=== PATIENT | female | born 1990 | race Caucasian/White ===

== ENCOUNTER 2018-08-23 02:08 | Emergency (ER) | payer BC ==
[2018-08-23] MEDS ORDERED: NS 0.9% 1000 ML* 1,000 ML IV ONE (02:21)
[2018-08-23] MEDS ORDERED: Morphine VIAL* 4 MG/ML VIAL (1 ml vial) IV ONE ×2 (02:23→03:25)
--- NOTE | 2018-08-23 02:40 | ED ---
Abdominal Pain/Female - HPI Summary HPI Summary: This patient is a 27 year old F presenting to [facility] accompanied by a woman with a chief complaint of sharp, left-sided abd pain radiating to the flank since 21: 00. The patient rates the pain 10/10 in severity. Patient reports nausea. Patient denies urinary symptoms. The patient was lying on the couch when she noticed the pain, which she thought was due to gas. She took GasX before trying to go to sleep. This is her first . The only complication with the so far is that the fetus has one umbilical artery. She went to the doctor on 08/21. No PMHx abdominal surgeries. - History of Current Complaint Chief Complaint: EDAbdPain Stated Complaint: 20WKS PREG ABD PAIN Time Seen by Provider: 08/23/18 02:16 Hx Obtained From: Patient Onset/Duration: Sudden Onset, Lasting Hours - 21:00 Timing: Constant Severity Initially: Severe Severity Currently: Severe Pain Intensity: 10 Pain Scale Used: 0-10 Numeric Location: Discrete At: LLQ Radiates to: Flank Character: Sharp Associated Signs and Symptoms: Positive: Nausea. Negative: Urinary Symptoms Allergies/Adverse Reactions: Allergies Allergy/AdvReac Type Severity Reaction Status Date / Time acetaminophen [From Vicodin] Allergy Nausea Verified 08/23/18 02:12 hydrocodone [From Vicodin] Allergy Nausea Verified 08/23/18 02:12 PMH/Surg Hx/FS Hx/Imm Hx History: Denies: Hx Dialysis EENT History: Denies: Hx Auditory Problems Infectious Disease History: No Infectious Disease History: Denies: Traveled Outside the [place] in Last 30 Days - Family History Known Family History: Positive: Non-Contributory - Social History Alcohol Use: None Substance Use Type: Reports: None Smoking Status (MU): Never Smoked Tobacco Review of Systems Positive: Abdominal Pain, Nausea Negative: burning, dysuria, hematuria All Other Systems Reviewed And Are Negative: Yes Physical Exam - Summary Physical Exam Summary: Appearance: Well-appearing, Well-nourished, lying in bed comfortably Skin: Warm, dry, no obvious rash Eyes: sclera anicteric, no conjunctival pallor ENT: mucous membranes moist, pharynx appears normal Neck: Supple, nontender Respiratory: Clear to auscultation, no signs of respiratory distress Cardiovascular: Normal S1, S2. No murmurs. Normal distal pulses in tibial and radial bilaterally. Abdomen: Soft, nontender, normal active bowel sounds present. Abd is gravid, consistent with dates. Musculoskeletal: Normal, Strength/ROM Intact Neurological: A&Ox3, awake and alert, mentation is normal, speech is fluent and appropriate Psychiatric: affect is normal, does not appear anxious or depressed Triage Information Reviewed: Yes Vital Signs On Initial Exam: Initial Vitals Temp Pulse Resp BP Pulse Ox 98.1 F 124 20 116/75 98 08/23/18 02:09 08/23/18 02:09 08/23/18 02:09 08/23/18 02:09 08/23/18 02:09 Vital Signs Reviewed: Yes Diagnostics - Vital Signs Vital Signs Temp Pulse Resp BP Pulse Ox 08/23/18 02:09 98.1 F 124 20 116/75 98 - Laboratory Result Diagrams: 08/23/18 02:36 08/23/18 02:34 Lab Statement: Any lab studies that have been ordered have been reviewed, and results considered in the medical decision making process. Abdominal Pain Fem Course/Dx - Course Course Of Treatment: This patient is a 27 year old F presenting to [facility] accompanied by a woman with a chief complaint of sharp, left-sided abd pain radiating to the flank since 21:00. The patient rates the pain 10/10 in severity. Patient reports nausea. Patient denies urinary symptoms. Test results with no significant abnormalities. In the ED course the patient was given Morphine, IV fluids, Oxycodone, and Ceftriaxone. We discussed patient care with Dr. Alonso and they recommended that I treat the pain, get an US, and get a urologist involved. We then discussed care with Dr. Alfredo and they approved the US. The patient will be signed out by Dr. Vera to Dr. Ibrahim, awaiting the results of the US and disposition. - Diagnoses Provider Diagnoses: Kidney stones - Provider Notifications Discussed Care Of Patient With: Hieu Alonso Time Discussed With Above Provider: 03:30 - treat pain, get US, consult urologist Discharge - Sign-Out/Discharge Documenting (check all that apply): Sign-Out Patient Signing out patient TO: Tam Ibrahim - Discharge Plan Condition: Stable Disposition: HOME Prescriptions: ceFUROXime TAB(*) [Ceftin TAB 250 MG(*)] 500 mg PO BID #20 tab Patient Education Materials: Kidney Stones (ED) Referrals: Donnie Garnica MD [Medical Doctor] - 3 Days Additional Instructions: Please take medication as prescribed. Follow up with your primary care provider in 2-3 days. Follow up with OCEANOGRAPHY PROFESSOR and urology when you return home. Return to the emergency department for any new or worsening symptoms. - Billing Disposition and Condition Condition: STABLE Disposition: Home - Attestation Statements Document Initiated by Scribe: Yes Documenting Scribe: Richard Mcmahan Provider For Whom Trippibe is Documenting (Include Credential): Tam Vera MD Scribe Attestation: Richard Luna, scribed for Tam Vera MD on 08/23/18 at 1841. Scribe Documentation Reviewed: Yes Provider Attestation: The documentation as recorded by the Richard olsen accurately reflects the service I personally performed and the decisions made by me, Tam eVra MD Status of Scribe Document: Viewed Consult Consult: At 05:50, talked to Dr. Alfredo about the patient and they agreed that there should be an ultrasound. They request that we call back once the results are in.
[2018-08-23 02:45] LABS: ABS Basophils 0 10^3/ul (0-0.2); ABS Eosinophils 0.1 10^3/ul (0-0.6); ABS Monocytes 0.6 10^3/ul (0-0.8); ABS Neutrophils 6.6 10^3/ul (1.5-7.7); ABS Nucleated RBC 0 10^3/ul; Eosinophil % 1.6 %; Hematocrit 32 % (35-47); Lymphocyte % 21.1 %; Mean Corpuscular HGB Conc 35 g/dl (31-36); Mean Corpuscular Hemoglobin 30 pg (27-31); Mean Corpuscular Volume 86 fL (80-97); Mean Platelet Volume 7.6 fL (7.4-10.4); Nucleated Red Blood Cells % 0; Platelet Count 326 10^3/ul (150-450); Red Blood Count 3.69 10^6/ul (4.00-5.40); Red Cell Distribution Width 14 % (10.5-15); White Blood Count 9.3 10^3/ul (3.5-10.8)
[2018-08-23 03:00] LABS: Albumin 3.7 g/dL (3.2-5.2); Albumin/Globulin Ratio 1.3 (1-3); BUN/Creatinine Ratio 15.9 (8-20); Calcium 10.3 mg/dL (8.6-10.3); EGFR Non-African American 101.3 (>60); Globulin 2.8 g/dL (2-4); Potassium 3.6 mmol/L (3.5-5.0); Total Bilirubin 0.2 mg/dL (0.2-1.0); Total Protein 6.5 g/dL (6.4-8.9)
[2018-08-23 03:09] LABS: Urine Appearance Cloudy; Urine Bacteria 1+ (Absent); Urine Bilirubin Negative (Negative); Urine Blood 3+ (Negative); Urine Color Yellow; Urine Glucose Negative (Negative); Urine Ketones Negative (Negative); Urine Nitrite Negative (Negative); Urine Protein Negative (Negative); Urine Red Blood Cell 3+(>10/hpf) (Absent); Urine Specific Gravity 1.009 (1.010-1.030); Urine Urobilinogen Negative (Negative); Urine White Blood Cell 3+(>20/hpf) (Absent)
[2018-08-23] MEDS ORDERED: cefTRIAXone(*) 1 GM in NS 0.9% 50 ML* 50 ML IVPB ONE (03:27)
[2018-08-23] MEDS ORDERED: oxyCODONE TAB* 5 MG TAB PO ONE (03:44)
[2018-08-23] MEDS ORDERED: Morphine ORAL.SOLN 10 mg* 2 MG/ML UDC 5 ml PO PRN (03:44)
--- NOTE | 2018-08-23 08:13 | ED ---
Progress - Progress Note Progress Note: The patient is a sign-out from Dr. Tam Vera MD, to Dr. Tam Ibrahim MD , at change of shift at 0700 pending renal US and disposition. Renal US reveals the absence of a left ureteral jet suspicious for a left ureteral obstruction. I consulted with Dr. Alfredo, urology, at 0915, who said he would come to the ED to speak with the patient. Dr. Alfredo said that the patient should receive more IV fluids and get a repeat renal US to see if the jet is present [0945]. We will reconsult following US. Bladder US reveals the presence of bilateral ureteral jets. She is diagnosed with kidney stones and will be sent home with instructions, as well as a prescription for Ceftin. She will follow up with OB/ GROUP EXERCISE MANAGER and urology is [place] when she returns home. She agrees with this plan and understands the need for return to the ED if symptoms worsen or new ones appear. - Results/Orders Results/Orders: Renal US: No left ureteral jet suspicious for a left ureteral obstruction. Recommend CT Imaging without contrast for further definition. ED physician has reviewed this report. Bladder US: 1. Bilateral ureteral jets are identified on the current examination. 2. 10 ml postvoid residual. ED physician has reviewed this report. Re-Evaluation - Re-Evaluation First Eval Re-Evaluation Time: 12:40 Change: Improved Comment: I spoke with the patient concerning US results and discharge home. She will follow up with OBJECT ORIENTED DEVELOPER and urology when she returns home to [place]. Course/Dx - Course Course Of Treatment: This patient is a 27 year old F presenting to [facility] accompanied by a woman with a chief complaint of sharp, left-sided abd pain radiating to the flank since 21:00. The patient rates the pain 10/10 in severity. Patient reports nausea. Patient denies urinary symptoms. Test results with no significant abnormalities. In the ED course the patient was given Morphine, IV fluids, Oxycodone, and Ceftriaxone. We discussed patient care with Dr. Alonso and they recommended that I treat the pain, get an US, and get a urologist involved. We then discussed care with Dr. Alfredo and they approved the US. The patient will be signed out by Dr. Vera to Dr. Ibrahim, awaiting the results of the US and disposition. - Diagnoses Provider Diagnoses: Kidney stones - Provider Notifications Discussed Care Of Patient With: Sam Alfredo - urology Time Discussed With Above Provider: 09:15 Instructed by Provider To: Other - I spoke with Dr. Alfredo who said he would come to the ED to speak with the patient. Dr. Alfredo said that the patient should receive more IV fluids and get a repeat renal US to see if the jet is present [0945]. We will reconsult following US. Discharge - Sign-Out/Discharge Documenting (check all that apply): Patient Departure - Patient will be discharged home. - Discharge Plan Condition: Stable Disposition: HOME Prescriptions: ceFUROXime TAB(*) [Ceftin TAB 250 MG(*)] 500 mg PO BID #20 tab Patient Education Materials: Kidney Stones (ED) Referrals: Donnie Garnica MD [Medical Doctor] - 3 Days Additional Instructions: Please take medication as prescribed. Follow up with your primary care provider in 2-3 days. Follow up with OBJECT ORIENTED DEVELOPER and urology when you return home. Return to the emergency department for any new or worsening symptoms. - Billing Disposition and Condition Condition: STABLE Disposition: Home - Attestation Statements Document Initiated by Diane: Yes Documenting Scribe: Vicki Temple Provider For Whom Diane is Documenting (Include Credential): Dr. Tam Ibrahim MD Scribe Attestation: Vicki Luna scribed for Dr. Tam Ibrahim MD on 08/23/18 at 1659. Scribe Documentation Reviewed: Yes Provider Attestation: The documentation as recorded by the Vicki olsen accurately reflects the service I personally performed and the decisions made by me, Dr. Tam Ibrahim MD Status of Scribporfirio Document: Viewed
[2018-08-23] MEDS: NS 0.9% 1000 ML* 2,000 ML IV ONE (10:04)
--- NOTE | 2018-08-23 11:26 | CONS ---
UROLOGY CONSULTATION NOTE: DATE OF CONSULT: 08/23/18. REQUESTING PHYSICIAN: Dr. Vera in the emergency department. DIAGNOSES: 1. Left flank pain. 2. consultation. HISTORY OF PRESENT ILLNESS: Polly Read is a 27-year-old lady who is 20 weeks who presented to the emergency room in earlier hours of the morning with left flank pain. She states that the pain started at about 9 p.m. on 08/22/18 and is intermittent in nature. There is no prior history of flank pain or of any episodes of urolithiasis. There is no history of recurrent urinary tract infections. She denies any dysuria or gross hematuria or fever. PAST MEDICAL HISTORY: Essentially unremarkable. She is 20 weeks with no problems during so far. ALLERGIES AND INTOLERANCES: ACETAMINOPHEN and HYDROCODONE. REVIEW OF SYSTEMS: She is otherwise in excellent health. There is no history of diabetes mellitus or any other major systemic illness. PHYSICAL EXAMINATION: Reveals a pleasant young lady who is currently resting comfortably. She states that for the last 4 to 5 hours prior to my evaluation she has not required any pain medication, and she rates the pain currently at a level of 2 or 3 out of 10. She denies any nausea or vomiting. Vital Signs: Temperature is 97.9, blood pressure 110/61, heart rate 91 per minute regular, oxygen saturation 97% on room air. Cardiovascular Exam: Regular rate and rhythm. S1, S2. Lungs are clear bilaterally. Abdomen is soft with very mild left flank tenderness. LABORATORY DATA: Review of labs reveals a white count of 9.3, hemoglobin and hematocrit are 11 and 32, with a platelet count of 326. Review of chemistries reveals a sodium of 135, potassium of 3.6, BUN and creatinine are normal at 11 and 0.69 respectively. Glucose is 106. Urinalysis reveals pH of 7.0 with 3+ blood, 3+ wbc's, 1+ bacteria, although nitrite is negative. I reviewed the renal sonogram which does not show any evidence of left hydronephrosis. There is no left renal calculus noted and no evidence of any extravasation around the left kidney on sonogram. The bladder sonogram, there is an absent left ureteral jet (although I do not know what the duration of imaging was for the bladder ultrasound). ASSESSMENT AND PLAN: I had a detail discussion with the patient and her mother. In the absence of any left hydronephrosis and given the fact that the pain is fairly low grade at the present time, this is unlikely to be a significant ureteral obstruction. My recommendation is to give her intravenous fluids and to repeat the bladder ultrasound looking for a left ureteral jet in a couple of hours. If the left ureteral jet is noted and her pain continues to be at relatively low grade, then she could be discharged home on oral antibiotics (I requested the ED to send a urine culture). I did emphasize with the patient and her mother regarding the need for close followup and I recommended that she have a followup ultrasound and urinalysis checked in the next 24 to 48 hours. If the repeat ultrasound continues to show an absent left ureteral jet or if her pain worsens then my recommendation would be to consider admission, intravenous fluids, monitor her, and observe her clinically for signs of any ureteral obstruction. At the present time I do not see any indication for any operative intervention. [id number]/CPS #: [id number] RHEA
[2018-08-23 13:18] VITALS: BP 109/76
== END 2018-08-23 13:21 | disposition home or self-care (01) ==
LOC: ED 02:08
DX: O26.892 Other specified pregnancy related conditions, second trimester (principal); N20.0 Calculus of kidney; Z3A.20 20 weeks gestation of pregnancy; Z88.6 Allergy status to analgesic agent; Z88.5 Allergy status to narcotic agent
CPT/HCPCS: 36415; 76775; 76857; 80053; 81003; 81015; 83690; 85025; 87086; 96365; 96375; 96376; 99283; J0696; J2270